=== PATIENT | male | born 1960 | race Caucasian/White ===

== ENCOUNTER → 2021-01-04 | Outpatient (CLI) | payer OTHER ==
[~2021-01-04] MED LIST: ASPIRIN CHEWABL81 MG PO; ATORVASTATIN CA20 MG PO; CLOPIDOGREL75 MG PO; ENALAPRIL MALEA20 MG PO; FARXIGA5 MG PO; FISH OIL 1,0001 EAC3 PO; GLUCOPHAGE 500500 MG PO; IMDUR ER TAB 3030 MG PO; LOPRESSOR 25 MG25 MG PO; LOSARTAN POTASS50 MG PO; METFORMIN HCL500 MG PO; NITROGLYCERIN0.4 MG SL; VIT D 2 PO; ZOCOR 40 MG TAB40 MG PO; ZOVIRAX 200 MG200 MG PO
== END ==
LOC: HEART 5 01-03 08:15
DX: I20.0 Unstable angina (principal); R94.39 Abnormal result of other cardiovascular function study
CPT/HCPCS: 78452; A9502